=== PATIENT | male | born 1985 | race Two or more races ===

== ENCOUNTER 2019-04-30 09:50 | Emergency (ER) | payer OTHER ==
--- NOTE | 2019-04-30 10:19 | ER Document Report ---
ED Medical Screen (RME) - General Chief Complaint: Dizziness Stated Complaint: LIGHTHEADED Time Seen by Provider: 04/30/19 10:10 Mode of Arrival: Ambulatory Information source: Patient Notes: This 33-year-old male with a previous history of WI at 29 presents this morning with complaints he just woke up and did not feel well. He denies symptoms such as fever vomiting nausea diarrhea cough congestion. He denies chest pain shortness of breath. He reports he just woke up and did not feel right. Patient is a diabetic but has not taken any kind of medication for over a year. Patient is nontoxic looking left smiles easily no distress. Patient reports he had his first WI at the age of 29 because he had a clogged artery. He denies use of recreational drugs. I have greeted and performed a rapid initial assessment of this patient. A comprehensive ED assessment and evaluation of the patient, analysis of test results and completion of the medical decision making process will be conducted by additional ED providers. Dictation of this chart was performed using voice recognition software; therefore, there may be some unintended grammatical errors. TRAVEL OUTSIDE OF THE [place] IN LAST 30 DAYS: No - Related Data Allergies/Adverse Reactions: Iodinated Contrast Media Allergy (Verified 04/30/19 10:09) Sulfa (Sulfonamide Antibiotics) Allergy (Verified 04/30/19 09:53) Past Medical History - Social History Frequency of alcohol use: None Drug Abuse: None Renal/ Medical History: Denies: Hx Peritoneal Dialysis Physical Exam - Vital signs Vitals: Temp Pulse Resp BP Pulse Ox 98.4 F 98 20 149/94 H 94 04/30/19 09:54 04/30/19 09:54 04/30/19 09:54 04/30/19 09:54 04/30/19 09:54 Course - Vital Signs Vital signs: Temp Pulse Resp BP Pulse Ox 98.4 F 98 20 149/94 H 94 04/30/19 09:54 04/30/19 09:54 04/30/19 09:54 04/30/19 09:54 04/30/19 09:54
[2019-04-30] MEDS ORDERED: NORMAL SALINE 1000 ML 1,000 ML IV ONE (10:20)
[2019-04-30 10:47] LABS: ABSOLUTE BASOPHILS # (AUTO) 0.1 10^3/uL (0.0-0.2); ABSOLUTE EOSINOPHILS # (AUTO) 0.3 10^3/uL (0.0-0.6); ABSOLUTE LYMPHOCYTES (AUTO) 3.2 10^3/uL (0.5-4.7); ABSOLUTE MONOCYTES (AUTO) 0.4 10^3/uL (0.1-1.4); ABSOLUTE NEUT (AUTO) 3.3 10^3/uL (1.7-8.2); BASOPHILS % (AUTO) 1.3 % (0-2); EOSINOPHILS % (AUTO) 3.6 % (0-6); HEMATOCRIT 48.6 % (37.9-51.0); HEMOGLOBIN 16.7 g/dL (13.5-17.0); MEAN CORPUSCULAR HEMOGLOBIN 30.9 pg (27.0-33.4); MEAN CORPUSCULAR HGB CONC 34.5 g/dL (32.0-36.0); MEAN CORPUSCULAR VOLUME 90 fl (80-97); PLATELET COUNT 166 10^3/uL (150-450); RED BLOOD COUNT 5.43 10^6/uL (4.35-5.55); SEGMENTED NEUTROPHILS % (AUTO) 45.1 % (42-78); TOTAL CELLS COUNTED % (AUTO) 100 %; WHITE BLOOD COUNT 7.3 10^3/uL (4.0-10.5)
[2019-04-30 11:11] LABS: ALBUMIN 4.2 g/dL (3.5-5.0); ALKALINE PHOSPHATASE 78 U/L (38-126); ANION GAP 8 (5-19); APPEARANCE,URINE CLEAR; ASPARTATE AMINO TRANSFERASE 55 U/L (17-59); BILIRUBIN,DIRECT 0.3 mg/dL (0.0-0.4); BILIRUBIN,TOTAL 0.7 mg/dL (0.2-1.3); BILIRUBIN,URINE NEGATIVE (NEGATIVE); BLOOD UREA NITROGEN 18 mg/dL (7-20); CALCIUM 9.6 mg/dL (8.4-10.2); CARBON DIOXIDE 26 mmol/L (22-30); CHLORIDE 100 mmol/L (98-107); COLOR,URINE YELLOW; CREATINE KINASE 247 U/L (55-170); GLUCOSE 356 mg/dL (75-110); GLUCOSE, URINE >=500 mg/dL (NEGATIVE); KETONES,URINE NEGATIVE (NEGATIVE); LEUKOCYTE ESTERASE,URINE NEGATIVE (NEGATIVE); NITRITE,URINE NEGATIVE (NEGATIVE); POTASSIUM 4.7 mmol/L (3.6-5.0); PROTEIN,URINE NEGATIVE (NEGATIVE); TOTAL PROTEIN 6.9 g/dL (6.3-8.2); URINE SPECIFIC GRAVITY 1.031; UROBILINOGEN,URINE NEGATIVE mg/dL (<2.0)
--- NOTE | 2019-04-30 13:09 | EKG REPORT ---
SEVERITY:- ABNORMAL ECG - SINUS RHYTHM RIGHT AXIS DEVIATION = LEFT POSTERIOR FASCICULAR BLOCK : Confirmed by: Shan Christensen MD 30-Apr-2019 13:08:01
--- NOTE | 2019-04-30 13:10 | ER Document Report ---
ED General - General Chief Complaint: Dizziness Stated Complaint: LIGHTHEADED Time Seen by Provider: 04/30/19 10:10 Mode of Arrival: Ambulatory Information source: Patient TRAVEL OUTSIDE OF THE [place] IN LAST 30 DAYS: No - HPI Notes: Patient complains of feeling weak and sweaty today while working outside. He denies any headache. He said he had no lightheadedness and no dizziness. Just felt weak. He had no shortness of breath or chest pain. He states he did have a heart attack 3 years ago with stent placement has had no recent chest pain. He also states he is diabetic but he has not taken his medicine in over a year. No recent vomiting or diarrhea. Symptoms today were mild to moderate. They were constant. They are made worse by exertion and better by rest. No radiation symptoms. - Related Data Allergies/Adverse Reactions: Iodinated Contrast Media Allergy (Verified 04/30/19 10:09) Sulfa (Sulfonamide Antibiotics) Allergy (Verified 04/30/19 09:53) Past Medical History - General Information source: Patient - Social History Smoking Status: Never Smoker Frequency of alcohol use: None Drug Abuse: None Family History: DM Patient has suicidal ideation: No Patient has homicidal ideation: No - Past Medical History Cardiac Medical History: Reports: Hx Heart Attack, Hx Hypercholesterolemia, Hx Hypertension Endocrine Medical History: Reports: Hx Diabetes Mellitus Type 2 Renal/ Medical History: Denies: Hx Peritoneal Dialysis GI Medical History: Reports: Hx Gastroesophageal Reflux Disease Review of Systems - Review of Systems Constitutional: Malaise, Weakness. denies: Chills, Fever Cardiovascular: denies: Chest pain, Dyspnea Respiratory: denies: Cough, Short of breath Gastrointestinal: Nausea. denies: Vomiting -: Yes All other systems reviewed and negative Physical Exam - Vital signs Vitals: Temp Pulse Resp BP Pulse Ox 98.4 F 98 20 149/94 H 94 04/30/19 09:54 04/30/19 09:54 04/30/19 09:54 04/30/19 09:54 04/30/19 09:54 Interpretation: Normal - General General appearance: Appears well, Alert - HEENT Head: Normocephalic, Atraumatic Eyes: Normal Pupils: PERRL - Respiratory Respiratory status: No respiratory distress Chest status: Nontender Breath sounds: Normal Chest palpation: Normal - Cardiovascular Rhythm: Regular Heart sounds: Normal auscultation Murmur: No - Abdominal Inspection: Normal Distension: No distension Bowel sounds: Normal Tenderness: Nontender Organomegaly: No organomegaly - Back Back: Normal, Nontender - Extremities General upper extremity: Normal inspection, Nontender, Normal color, Normal ROM, Normal temperature General lower extremity: Normal inspection, Nontender, Normal color, Normal ROM, Normal temperature, Normal weight bearing. No: Sadaf's sign - Neurological Neuro grossly intact: Yes Cognition: Normal Orientation: AAOx4 Rei Coma Scale Eye Opening: Spontaneous [place] Coma Scale Verbal: Oriented [place] Coma Scale Motor: Obeys Commands [place] Coma Scale Total: 15 Speech: Normal Motor strength normal: LUE, RUE, LLE, RLE Sensory: Normal - Psychological Associated symptoms: Normal affect, Normal mood - Skin Skin Temperature: Warm Skin Moisture: Dry Skin Color: Normal Course - Re-evaluation Re-evalutation: 04/30/19 13:06 Patient feels better now. His blood sugar is elevated. I had a talk with him about the need to take his medicine. He states he has no more prescriptions for his diabetes medicine. I will give this to him. Patient has no evidence of any cardiac or intracranial pathology. - Vital Signs Vital signs: Temp Pulse Resp BP Pulse Ox 98.4 F 98 16 134/86 H 97 04/30/19 09:54 04/30/19 09:54 04/30/19 11:00 04/30/19 10:32 04/30/19 11:00 - Laboratory Result Diagrams: 04/30/19 10:32 04/30/19 10:32 Laboratory results interpreted by me: 04/30/19 04/30/19 04/30/19 10:18 10:32 10:32 Sodium 133.8 L Glucose 356 H POC Glucose 349 H Creatine Kinase 247 H Urine Glucose (UA) >=500 H - EKG Interpretation by Co EKG shows normal: Sinus rhythm Rate: Normal - 87 Rhythm: NSR [place]/QRS: Right axis deviation Discharge - Discharge Clinical Impression: Weakness Hyperglycemia due to type 2 diabetes mellitus Qualifiers: Diabetes mellitus prison insulin use: without buttermaker helper use Qualified Code(s): E11.65 - Type 2 diabetes mellitus with hyperglycemia Condition: Stable Disposition: HOME, SELF-CARE Additional Instructions: Please find a family physician as soon as possible to arrange follow-up. Please take your medicines as prescribed Prescriptions: Sitagliptin Phos/Metformin HCl [Janumet 50-500 mg Tablet] 1 each PO DAILY 30 Days #30 tablet Forms: Return to Work Referrals: LEBRON FINCH MD [COMMUNITY BASED STAFF] - Follow up in 3-5 days
[2019-04-30 13:26] VITALS: BP 112/67
[2019-05-02 13:37] LABS: ROCKY MTN SPOTTED FEV IGG EIA Positive (Negative)
== END 2019-04-30 13:26 | disposition home or self-care (01) ==
LOC: ER 09:50
DX: E11.65 Type 2 diabetes mellitus with hyperglycemia (principal); R53.1 Weakness; R42 Dizziness and giddiness; R11.0 Nausea; I10 Essential (primary) hypertension
CPT/HCPCS: 93005; 99284; 96360; 96361; 36415; 82962; 82550; 85025; 80053; 81001; 84484; 86757 ×2; 93010; J7030